=== PATIENT | female | born 1995 | race Caucasian/White ===

== ENCOUNTER → 2021-05-05 09:21 | Outpatient (BNVA) | payer MEDICAID, SELFPAY | PROVIDERS: PCP Pediatrics Adolescent Medicine; Visit Provider Nurse Practitioner Women's Health | DX: N92.6 Irregular menstruation, unspecified (principal) | CPT/HCPCS: 81025 ==

== ENCOUNTER → 2021-05-19 10:24 | Outpatient (BNVA) | payer MEDICAID, SELFPAY | PROVIDERS: PCP Pediatrics Adolescent Medicine; Visit Provider Nurse Practitioner Women's Health | DX: Z34.80 Encounter for supervision of other normal pregnancy, unspecified trimester (principal) | CPT/HCPCS: 81000; 87086 ==

== ENCOUNTER → 2021-06-07 12:03 | Outpatient (BNVA) | payer MEDICAID, SELFPAY | PROVIDERS: PCP Pediatrics Adolescent Medicine; Visit Provider Obstetrics & Gynecology | DX: Z34.80 Encounter for supervision of other normal pregnancy, unspecified trimester (principal) | CPT/HCPCS: 80307; 81000; 85027; 86592; 86762; 86803; 86850; 86900; 87086; 87340 ==

== ENCOUNTER → 2021-06-21 12:56 | Outpatient (BNVA) | payer MEDICAID, SELFPAY | PROVIDERS: PCP Pediatrics Adolescent Medicine; Visit Provider Obstetrics & Gynecology | DX: Z34.80 Encounter for supervision of other normal pregnancy, unspecified trimester (principal) | CPT/HCPCS: 84315; 87491; 87591; 88175 ==

== ENCOUNTER → 2021-10-10 14:35 | Outpatient (BNVA) | payer MEDICAID, SELFPAY | PROVIDERS: PCP Nurse Practitioner Family; Visit Provider Obstetrics & Gynecology | DX: Z34.80 Encounter for supervision of other normal pregnancy, unspecified trimester (principal) | CPT/HCPCS: 82950; 84315; 85027; 87086 ==

== ENCOUNTER 2021-12-05 14:13 | Outpatient (CLI) | payer MEDICAID, SELFPAY ==
[2021-12-05] VITALS (38 sets, daily range): BP systolic 118–139; BP diastolic 63–92; PULSE 94–136; RESP 17; TEMP 36.2–36.4; O2SAT 96–100; BMI 25.1
[2021-12-05 15:13] LABS: Bilirubin Urine Neg (Negative); Blood Urine 2+ (Negative); Glucose Urine UA Norm (Normal); Ketones Urine 3+ (Negative); Leukocyte Esterase Urine 1+ (Negative); Nitrate Urine Negative (Negative); Protein Urine Neg (Negative); Specific Gravity, Urine 1.015 (1.005-1.030); Urine Appearance SL Hazy (CLEAR); Urine Color Yellow (Yellow); Urobilinogen Urine Norm (Negative); pH Urine 6 (5-7)
[2021-12-05 15:15] LABS: Add Urine Culture? Yes; Bacteria Urine 2+ /hpf; WBC Urine 15-25 /hpf (0-5)
--- NOTE | 2021-12-05 15:16 | USR_ITS ---
PROCEDURE INFORMATION: Exam: US Biophysical Profile Without Non-Stress Test Exam date and time: 12/05/2021 4:53 PM Age: 26 years old Clinical indication: Pain indication: Patient is having right flank pain; ; Additional info: well being, logan TECHNIQUE: Imaging protocol: US biophysical profile without non-stress testing. COMPARISON: US OB >= 14 weeks fetus [facility] 08/16/2021 8:52 AM FINDINGS: heart rate: Appropriate cardiac activity is documented. Heart rate is 141 bpm. Presentation: Fetus is in cephalic presentation. Placenta: Anterior placenta. No placenta previa. No retroplacental fluid collection. Amniotic fluid index: Amniotic fluid index is 13.1 cm. BIOPHYSICAL PROFILE: breathing movement (BPP): 2 out of 2. body movement (BPP): 2 out of 2. tone (BPP): 2 out of 2. Amniotic fluid (BPP): 2 out of 2. MATERNAL ANATOMY: Cervix: Cervix measures 3.7 cm in length, and appears closed. US/US OB BPP NST [id number] IMPRESSION: 1. Biophysical profile score is 8/8. 2. Amniotic fluid index is 13.1 cm.
--- NOTE | 2021-12-05 15:27 | USR_ITS ---
PROCEDURE INFORMATION: Exam: US Retroperitoneal; Complete; Kidneys and Bladder Exam date and time: 12/05/2021 4:35 PM Age: 26 years old Clinical indication: Abdominal pain; Flank; Right upper quadrant (ruq); ; Additional info: Possible kidney stone TECHNIQUE: Imaging protocol: Real-time ultrasound of the retroperitoneum with image documentation. Complete exam focused on the kidneys and bladder. COMPARISON: US OB follow up [facility] 09/14/2021 10:10 AM FINDINGS: Right kidney: Right kidney measures 11.1 cm in length. Moderate right hydronephrosis noted. No right renal calculus noted. The right ureter is not demonstrated sonographically. No renal cyst or mass. Left kidney: Left kidney measures 10.6 cm in length. Mild left hydronephrosis noted. No left renal calculus noted. The left ureter is not demonstrated sonographically. No renal cyst or mass. Urinary bladder: Urinary bladder is unremarkable as demonstrated. US/US renal BI* [id number] IMPRESSION: 1. Bilateral hydronephrosis, right worse than left. The bilateral ureters are not demonstrated sonographically. 2. The visualized bilateral hydronephrosis may secondary to extrinsic compression of the distal ureters by the gravid uterus. Alternatively, ureteral calculi cannot be excluded on the basis of this study.
[2021-12-05] MEDS: acetaminophen 500 mg Tablet 1000 MG PO (15:33)
[2021-12-05 18:14] LABS: Basophils # 0.1 10^3/uL (0.0-0.1); Basophils % 0.5 %; Eosinophils # 0.1 10^3/uL (0.0-0.8); Hematocrit 30.6 % (37.0-47.0); Hemoglobin 10.3 g/dL (11.5-15.3); Lymphocytes # 1.5 10^3/uL (0.8-4.8); Lymphocytes % 12.7 %; Mean Corpuscular HGB Conc 33.7 g/dL (30.0-36.0); Mean Corpuscular Hemoglobin 29.7 pg (28.0-34.0); Mean Corpuscular Volume 88.2 fl (81-99); Mean Platelet Volume 9.1 fL (7.4-10.4); Monocytes # 1.7 10^3/uL (0.2-0.9); Monocytes % 14.3 %; Neutrophils # 8.46 10^3/uL (1.8-7.7); Neutrophils % 69.6 %; Nucleated Red Blood Cells % 0 %; Platelet Count 199 10^3/cmm (130-400); Red Blood Count 3.47 10^6/uL (4.1-5.3); Red Cell Distribution Width 13.5 % (12.1-15.1); White Blood Count 12.2 10^3/uL (4.0-10.0)
[2021-12-05] MEDS: lactated ringers 1,000 ML 999 ML IV (18:16)
[2021-12-05 18:39] LABS: Alanine Aminotransferase 9 U/L (0-33); Albumin Level 3.3 g/dL (3.5-5.2); Alkaline Phosphatase 147 IU/L (35-105); Anion Gap 13.2 (5-19); Aspartate Amino Transferase 17 U/L (0-32); Blood Urea Nitrogen 5 mg/dL (6-20); Calcium 8.8 mg/dL (8.5-10.5); Carbon Dioxide 21 mmol/L (22-29); Chloride 101 mmol/L (98-107); Glomerular Filtration Rate 194.5 mL/min (90-130); Glucose 77 mg/dL (65-115); Osmolality Calculated 270 mOsm/kg (285-295); Potassium 3.2 mmol/L (3.5-5.1); Sodium 132 mmol/L (136-145); Total Bilirubin 0.3 mg/dL (0.15-1.2); Total Protein 6.3 g/dL (6.6-8.7)
[2021-12-05] MEDS: HYDROcodone-acetaminophen 5-325 mg Tablet 1 TAB PO (18:44)
== END 2021-12-05 20:10 | disposition home or self-care (01) ==
LOC: OPOB 14:14 → OBGYN 14:15
PROVIDERS: Obstetrics & Gynecology; PCP Nurse Practitioner Family; Visit Provider Obstetrics & Gynecology
DX: O26.899 Other specified pregnancy related conditions, unspecified trimester (principal); Z3A.00 Weeks of gestation of pregnancy not specified; R09.89 Other specified symptoms and signs involving the circulatory and respiratory systems; R10.9 Unspecified abdominal pain
CPT/HCPCS: 36415; 59025; 76770; 76819; 80053; 81001; 85025; 87086; 99211

== ENCOUNTER → 2021-12-06 08:55 | Outpatient (BNVA) | payer MEDICAID, SELFPAY | PROVIDERS: PCP Nurse Practitioner Family; Visit Provider Obstetrics & Gynecology | DX: Z34.90 Encounter for supervision of normal pregnancy, unspecified, unspecified trimester (principal) | CPT/HCPCS: 84315; 87081 ==

== ENCOUNTER 2021-12-27 18:02 | Inpatient (IN) | payer MEDICAID, SELFPAY ==
[2021-12-27] VITALS (35 sets, daily range): BP systolic 124–149; BP diastolic 68–105; PULSE 71–117; RESP 16; O2SAT 82–100; BMI 25.1
[2021-12-27 19:04] LABS: Basophils # 0.1 10^3/uL (0.0-0.1); Basophils % 0.5 %; Eosinophils # 0.1 10^3/uL (0.0-0.8); Eosinophils % 0.9 %; Hematocrit 33.4 % (37.0-47.0); Hemoglobin 10.7 g/dL (11.5-15.3); Lymphocytes # 1.6 10^3/uL (0.8-4.8); Lymphocytes % 12.1 %; Mean Corpuscular Hemoglobin 29.3 pg (28.0-34.0); Mean Corpuscular Volume 91.5 fl (81-99); Mean Platelet Volume 9.6 fL (7.4-10.4); Monocytes % 7.8 %; Neutrophils # 10.16 10^3/uL (1.8-7.7); Neutrophils % 77.5 %; Nucleated Red Blood Cells % 0 %; Platelet Count 198 10^3/cmm (130-400); Red Blood Count 3.65 10^6/uL (4.1-5.3); Red Cell Distribution Width 15.5 % (12.1-15.1); White Blood Count 13.1 10^3/uL (4.0-10.0)
[2021-12-27] MEDS: ampicillin 2,000 MG in sodium chloride 0.9% (plus) 50 ML 100 MG IV (19:31)
[2021-12-27] MEDS: dextrose 5%-lactated ringers 1,000 ML 125 ML IV (19:31)
--- NOTE | 2021-12-27 22:50 | ANES.PREANE2 ---
Pre-Anesthetic Assessment Height/Weight: Height 1.55 m Weight 60.328 kg Pulse Resp BP Pulse Ox 113 H 16 133/69 100 12/27/21 23:25 12/27/21 18:24 12/27/21 23:23 12/27/21 23:25 Preop Diagnosis: IUP labor epidural Familial anesthetic complications: none Was Beta Rell taken within 24 hours: N/A Was Clonidine taken within 24 hours: N/A Last Intake: 10:00 Social No alcohol and No tobacco Exam alert, oriented x 3 and clear to auscultation bilaterally Airway Submandibular: within normal limits Cervical ROM: within normal limits Mallampati: Class II Dentition: full History/ROS No significant complaints Anesthetic Plan ASA status: 2 Anesthesia: Anesthesia Evaluation and Regional (specify below) (labor epidural) Risk of > 500 ml blood loss (7ml/kg in children): Yes, adequate IV access and fluids planned Medications/Allergies Home Medications Medication Instructions Recorded Confirmed Last Taken Type vitamins no.119-iron tab PO 05/05/21 12/26/21 12/04/21 22:00 History fumarate 29 mg-folic acid 1 mg tablet breast pump (Pump In Style #1 ea 10/24/21 12/26/21 Unknown Rx Advanced) ferrous sulfate 325 mg (65 mg 325 mg PO DAILY tab 11/07/21 12/26/21 12/04/21 22:00 History iron) tablet bupropion HCl 100 mg tablet,12 hr 100 mg PO DAILY tab 11/18/21 12/26/21 12/04/21 22:00 History sustained-release (Wellbutrin SR) Allergies Allergy/AdvReac Type Severity Reaction Status Date / Time No Known Allergies Allergy Verified 12/26/21 15:24 Current Medications Generic Name Dose Route Start Last Admin Trade Name Freq PRN Reason Stop Dose Admin Dextrose/Lactated Ringer's 1,000 mls @ 125 mls/hr 12/27/21 18:30 12/27/21 19:31 Dextrose 5%-Lactated Ringers IV 125 mls/hr .Q8H HARRY Administration PFS Anesthesia Medical History Anxiety and depression (~2019) Has had symptoms on and off since teenage years however started on medication in 2018-took Paxil without any improvement and discontinued medication in 2019 and has not been on any medication since then. She did see a therapist and a psychiatrist in 2019 but not now. Symptoms are controlled with relaxation techniques No pertinent past medical history Denies diabetes, asthma, hypertension, seizures, DVT/PE PCP: NOVA Maldonado at [facility] Surgical History No pertinent past surgical history Family History Grandmother Diabetes maternal Hypertension maternal Stroke maternal Mother Hypertension Grandfather Stroke paternal Denies family history of Colon cancer Ovarian cancer Heart disease Hyperlipidemia Breast cancer Uterine cancer Thyroid disease Female Reproductive History : 2 Data Anesthesia : 12/27/21 18:30 Short CBC 12/27/21 Range/Units 18:30 WBC 13.1 H (4.0-10.0) 10^3/uL Hgb 10.7 L (11.5-15.3) g/dL Hct 33.4 L (37.0-47.0) % MCV 91.5 (81-99) fl Plt Count 198 (130-400) 10^3/cmm Neut % (Auto) 77.5 % Neut # (Auto) 10.16 H (1.8-7.7) 10^3/uL Cardiac Studies: No Data to Display
--- NOTE | 2021-12-27 23:33 | ANES.PROC ---
Anesthesia Procedures Procedure/Date: 12/27/21 epidural Epidural: Time Out Performed: Yes Consents Signed: Procedure Consent Consent: from patient, risks and benefits reviewed and patient agrees to proceed Lumbar Level: L2-L3 Epidural position: sitting Epidural procedure: sterile prep of area, 1% lidocaine to numb the area, 18 g needle, negative for paresthesia passed, test dose given, 1.5% xylocaine 1:200k epi, placed PCEA, no systemic response, sterile dressing applied, L.U.D. no apparent complications and 0.2% Ropiavacaine @ mls/hr (11) Additional Comments: first attempt blood return in catheter second attempt no blood, no CSF. successful. LITA at 5, taped at 11 at skin.
[2021-12-27] MEDS: ampicillin 1,000 MG in sodium chloride 0.9% (plus) 50 ML 100 MG IV (23:55)
[2021-12-28] VITALS (105 sets, daily range): BP systolic 90–154; BP diastolic 51–90; PULSE 69–136; RESP 14–19; TEMP 35.4–37.1; O2SAT 94–100
[2021-12-28] MEDS: oxytocin 30 UNIT/500 ML BAG IV (00:07)
[2021-12-28] MEDS: alum-mag-hydroxide-sime 30 mL UDC PO (00:25)
[2021-12-28] MEDS: ampicillin 1,000 MG in sodium chloride 0.9% (plus) 50 ML 100 MG IV ×2 (03:49→07:31)
[2021-12-28] MEDS: ondansetron 2 mg/ML SDV 2 mL 4 MG IVP (05:36)
--- NOTE | 2021-12-28 08:24 | PM.MISC ---
Miscellaneous Note Purpose of Documentation: progress note Note: Patient complaining of R hip pain since 4 am, bolused with bupivicaine 0.5% 5 cc with improved pain profile.
--- NOTE | 2021-12-28 09:23 | PM.OPHPUD ---
Labor & Delivery H&P Update Date of Procedure: December 28, 2021 Date H&P Performed: 12/26/21 H&P update information: I have reviewed H&P completed within last 30 days, I have examined patient prior to procedure and No changes to prior documentation Changes to previous documentation: The patient is here for elective induction at term. Admission Diagnosis: Preop diagnosis: IUP
[2021-12-28] MEDS: miSOPROStol 200 mcg Tablet 800 MCG PR (11:28)
--- NOTE | 2021-12-28 11:35 | PM.DELIVERY ---
Delivery Note: Date of delivery: December 28, 2021 Pre-delivery diagnoses: iup@39 weeks, 5 days Post-delivery diagnoses: same-delivered Procedure: Delivering Physician: Ambar Estimated blood loss (mL): 150 Pre-Delivery Course: The patient was admitted for induction at term. She received pitocin for augmentation, as she was already having some contractions. She received three doses of ampicillin for GBS prophylaxis. She had some jorge red bleeding when she was 8 cm dilation. She had AROM. A small amount of clot and some blodd stained amniotic fluid was produced. They bleeding ceased after this. This had complete cervical dilation and began pushing. Delivery: The patient had complete cervical dilation and began to push. The head delivered in the MARYLIN position over an intact perineum under epidural anesthesia. The nose and mouth were bulb suctioned. The shoulders and body delivered atraumatically. The baby was placed onto the mother's abdomen. The cord was clamped and cut. Cord blood was obtained. The placenta delivered spontaneously and just shortly after the baby. It appeared as though there was a small abruption. The placenta was sent to pathology to evaluate. It was inspected and found to be intact. Inspection of the perineum revealed no lacerations and no repair was required. Estimated blood loss 150 mL. Apgars on baby were 9 at 1 minute and 10 at 5 minutes. Weight of baby is 8 pounds 4 ounces. Mother and baby were stable post delivery. 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
[2021-12-28] MEDS: HYDROcodone-acetaminophen 5-325 mg Tablet PO (12:47)
[2021-12-28] MEDS: benzocaine-menthol 78 gm Canister 1 SPRAY TOPICAL (13:41)
[2021-12-28] MEDS: ibuprofen 800 mg tablet PO ×2 (14:50→20:53)
[2021-12-28] MEDS: docusate sodium 100 mg Capsule PO (18:14)
[2021-12-28] MEDS: lanolin oint 7 gm 1 APPLIC TOPICAL (21:46)
[2021-12-28 23:14] LABS: Hemoglobin 7.8 g/dL (11.5-15.3); Mean Corpuscular HGB Conc 32.5 g/dL (30.0-36.0); Mean Corpuscular Hemoglobin 29.5 pg (28.0-34.0); Mean Corpuscular Volume 90.9 fl (81-99); Mean Platelet Volume 9.2 fL (7.4-10.4); Platelet Count 171 10^3/cmm (130-400); Red Blood Count 2.64 10^6/uL (4.1-5.3); Red Cell Distribution Width 13.8 % (12.1-15.1); White Blood Count 19.5 10^3/uL (4.0-10.0)
[2021-12-29 01:00] VITALS: BP 110/66; PULSE 78; O2SAT 98
[2021-12-29 05:00] VITALS: BP 129/83; PULSE 76; RESP 16; O2SAT 99
--- NOTE | 2021-12-29 08:10 | PM.PN ---
Subjective Subjective: The patient is doing well this morning. No concerns. Baby has to stay for 48 hours due to GBS+ Vitals/I&O/Wt Last Vital Signs Temp 98.1 F 12/28/21 17:15 Pulse 76 12/29/21 05:00 Resp 16 12/29/21 05:00 BP 129/83 12/29/21 05:00 Pulse Ox 99 12/29/21 05:00 12/28/21 12/29/21 12/29/21 22:59 06:59 14:59 Intake Total 348.5 / 1777.333 Output Total 400 / 900 Balance -51.5 / 877.333 Weight last 48 hrs Weight 133 lb Physical Exam Narrative: No concerns this AM. well. Lochia is normal. Tolerating a regular diet, ambulating without difficulty Const: COMMON NORMALS: no acute distress, average body habitus, patient oriented x3, no limitations, healthy appearing, alert and well nourished GENERAL APPEARANCE: cooperative, comfortable, well kempt and well developed ORIENTATION/CONSCIOUSNESS: Yes awake, Yes oriented to person, Yes oriented to place and Yes oriented to time Resp: COMMON NORMALS: normal respiratory effort EFFORT & INSPECTION: Yes able to speak in complete sentences GI: COMMON NORMALS: Soft to palpation and non-tender PALPATION: Yes Soft to palpation Extremity: COMMON NORMALS: no calf tenderness Neuro: COMMON NORMALS: patient oriented x3 SENSORIUM/ORIENTATION: Yes alert, Yes oriented to person, Yes oriented to place and Yes oriented to time Psych: APPEARANCE: Yes well kempt Urinary Catheter Management: Madsen: Cath Placed During This Visit: yes, but has since been removed by the nurse Reason for Continuing Indwelling Catheter: Decision to DC Catheter Urinary Catheter Date of Insertion: 12/28/21 Urinary Catheter Time of Insertion: 00:10 Date Urinary Catheter Removed: 12/28/21 Time Urinary Catheter Discontinued: 10:45 Data : 12/28/21 23:03 Attestations Medical Necessity Statement*: The patient had a vaginal delivery. 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
[2021-12-29] MEDS: ibuprofen 800 mg tablet PO ×3 (09:06→21:45)
[2021-12-29] MEDS: docusate sodium 100 mg Capsule PO (09:06)
[2021-12-29] MEDS: prenatal vitamin Capsule 1 CAP PO (09:06)
[2021-12-29 09:10] VITALS: BP 108/70; PULSE 85; RESP 15; TEMP 36.4
[2021-12-29 15:22] VITALS: BP 110/73; PULSE 95; RESP 16; TEMP 36.6; O2SAT 100
[2021-12-29] MEDS: HYDROcodone-acetaminophen 5-325 mg Tablet PO (21:45)
[2021-12-29 21:50] VITALS: BP 126/71; PULSE 73; RESP 16; TEMP 36.8; O2SAT 99
[2021-12-30 05:00] VITALS: BP 108/66; PULSE 59; RESP 17; TEMP 36.7; O2SAT 96
--- NOTE | 2021-12-30 07:43 | PM.DCS ---
Discharge Providers Date of Admission: 12/27/21 18:02 Date of Discharge: December 30, 2021 Attending Provider at Admission: Felicita Villalta MD Attending Provider at Discharge: Felicita Villalta MD Primary Care Provider: Jaclyn Marcum Reason for Visit Reason for Visit: IOL Hospital Course Hospital Course The patient was admitted for induction of labor at term. She received pitocin augmentation as she was already having irregular contractions. She was GBS positive and received three doses of ampicillin prior to delivery. She had spontaneous delivery of a term male . She did well and was ready for discharge on day #2. Physical Exam Narrative: doing well this morning. No concerns. Const: COMMON NORMALS: no acute distress, average body habitus, patient oriented x3, no limitations, healthy appearing, alert and well nourished GENERAL APPEARANCE: cooperative, comfortable, well kempt and well developed ORIENTATION/CONSCIOUSNESS: Yes awake, Yes oriented to person, Yes oriented to place and Yes oriented to time Resp: COMMON NORMALS: normal respiratory effort EFFORT & INSPECTION: Yes able to speak in complete sentences GI: COMMON NORMALS: Soft to palpation and non-tender PALPATION: Yes Soft to palpation Extremity: COMMON NORMALS: no calf tenderness Neuro: COMMON NORMALS: patient oriented x3 SENSORIUM/ORIENTATION: Yes alert, Yes oriented to person, Yes oriented to place and Yes oriented to time Psych: COMMON NORMALS: mental status grossly normal, Normal thought process present, cooperative, normal affect and speech normal APPEARANCE: Yes grossly normal and Yes well kempt ATTITUDE: Yes calm and Yes engaged ACTIVITY/MOTOR BEHAVIOR: Yes appropriate eye contact SPEECH: Yes normal speech THOUGHT PROCESS: Normal thought process present Urinary Catheter Management: Madsen: Cath Placed During This Visit: yes, but has since been removed by the nurse Reason for Continuing Indwelling Catheter: Decision to DC Catheter Urinary Catheter Date of Insertion: 12/28/21 Urinary Catheter Time of Insertion: 00:10 Date Urinary Catheter Removed: 12/28/21 Time Urinary Catheter Discontinued: 10:45 Discharge Data Studies Completed and Pending Pending at discharge Category Date Time Status Pathology: Surgical [PTH] Routine Pth 12/28/21 12:20 Received Laboratory Results WBC 19.5 10^3/uL (4.0-10.0) H 12/28/21 23:03 RBC 2.64 10^6/uL (4.1-5.3) L 12/28/21 23:03 Hgb 7.8 g/dL (11.5-15.3) L 12/28/21 23:03 Hct 24.0 % (37.0-47.0) L 12/28/21 23:03 MCV 90.9 fl (81-99) 12/28/21 23:03 MCH 29.5 pg (28.0-34.0) 12/28/21 23:03 MCHC 32.5 g/dL (30.0-36.0) 12/28/21 23:03 RDW 13.8 % (12.1-15.1) 12/28/21 23:03 Plt Count 171 10^3/cmm (130-400) 12/28/21 23:03 MPV 9.2 fL (7.4-10.4) 12/28/21 23:03 Neut % (Auto) 77.5 % 12/27/21 18:30 Lymph % (Auto) 12.1 % 12/27/21 18:30 [place] % (Auto) 7.8 % 12/27/21 18:30 Eos % (Auto) 0.9 % 12/27/21 18:30 Baso % (Auto) 0.5 % 12/27/21 18:30 Neut # (Auto) 10.16 10^3/uL (1.8-7.7) H 12/27/21 18:30 Lymph # (Auto) 1.6 10^3/uL (0.8-4.8) 12/27/21 18:30 [place] # (Auto) 1.0 10^3/uL (0.2-0.9) H 12/27/21 18:30 Eos # (Auto) 0.1 10^3/uL (0.0-0.8) 12/27/21 18:30 Baso # (Auto) 0.1 10^3/uL (0.0-0.1) 12/27/21 18:30 Nucleated RBC % (auto) 0 % 12/27/21 18:30 Nucleated RBCs # 0.0 /100WBC 12/27/21 18:30 Vitals Last Vital Signs Temp 98.1 F 12/30/21 05:00 Pulse 59 L 12/30/21 05:00 Resp 17 12/30/21 05:00 BP 108/66 12/30/21 05:00 Pulse Ox 96 12/30/21 05:00 Discharge Plan Discharge Patient Disposition: Home Condition: Stable Prescriptions: Continued PNV 119-iron fum-folic acid 29 mg iron- 1 mg tablet PO 0RF (DME) breast pump [Pump In Style Advanced] Device See Rx Instructions .ROUTE .MEDSUPPLY Qty: 1 0RF Rx Instructions: As directed ferrous sulfate 325 mg (65 mg iron) tablet 325 mg PO DAILY 0RF bupropion HCl [Wellbutrin SR] 100 mg tablet sustained-release 12 hr 100 mg PO DAILY 0RF Discharge Orders: Discharge Order (Routine); Ordered 12/30/21 Ordered By: Felicita Villalta Referrals: Zahida Hernandez MD [Physician] - 02/08/22 8:30 am (Your 6 week post- appointment is scheduled for 02/08/22 @8:30. ) Patient Instructions: Opioid Safety Discharge Attestations Time Spent in Discharge Care*: less than 30 min Quality Metrics Clinical Quality Measures [ No reported AMI, CVA or VTE this stay] Coding Level of Care Code Acute Chg FW DC note
[2021-12-30] MEDS: prenatal vitamin Capsule 1 CAP PO (08:11)
[2021-12-30] MEDS: ibuprofen 800 mg tablet PO (08:11)
[2021-12-30] MEDS: docusate sodium 100 mg Capsule PO (08:12)
[2021-12-30 08:20] VITALS: BP 108/75; PULSE 72; RESP 18; TEMP 36.6; O2SAT 98
[2021-12-30 09:35] VITALS: BP 108/75; PULSE 72; RESP 18; TEMP 36.6; O2SAT 98
--- NOTE | 2021-12-30 10:32 | ANE.PACU2 ---
Inpatient post-anesthesia follow up: Airway intact: Yes Vital signs: Temperature 97.9 F Pulse Rate 72 Respiratory Rate 18 Blood Pressure 108/75 Pulse Oximetry 98 Oxygen Delivery Me thod Room Air Oxygen Flow Rate Fraction of Inspir ed Oxygen Hydration adequate: Yes Nausea and vomiting: No Pain level: 2 Mental status: Baseline
== END 2021-12-30 09:35 | disposition home or self-care (01) | DRG 807 ==
LOC: OBGYN 18:15
PROVIDERS: Admitting Provider Obstetrics & Gynecology; PCP Nurse Practitioner Family; Visit Provider Obstetrics & Gynecology
DX: O99.824 Streptococcus B carrier state complicating childbirth (principal); Z37.0 Single live birth; O99.344 Other mental disorders complicating childbirth; O99.02 Anemia complicating childbirth; O45.93 Premature separation of placenta, unspecified, third trimester; Z3A.39 39 weeks gestation of pregnancy; F41.8 Other specified anxiety disorders; D64.9 Anemia, unspecified; M25.551 Pain in right hip; O75.89 Other specified complications of labor and delivery
CPT/HCPCS: 36415; 51702; 59409; 85025; 85027; 88307; J0290; J2405; J2795

== ENCOUNTER → 2022-02-08 09:07 | Outpatient (BNVA) | payer MEDICAID, SELFPAY | PROVIDERS: PCP Nurse Practitioner Family; Visit Provider Obstetrics & Gynecology | DX: Z01.419 Encounter for gynecological examination (general) (routine) without abnormal findings (principal); D64.9 Anemia, unspecified | CPT/HCPCS: 84702; 85025; 88175 ==

== ENCOUNTER → 2022-02-14 16:00 | Outpatient (BNVA) | payer MEDICAID, SELFPAY | PROVIDERS: PCP Nurse Practitioner Family; Visit Provider Obstetrics & Gynecology | DX: Z30.9 Encounter for contraceptive management, unspecified (principal) | CPT/HCPCS: 81025 ==

== ENCOUNTER → 2022-12-22 16:00 | Outpatient (BNVA) | payer MEDICAID, SELFPAY | PROVIDERS: PCP Nurse Practitioner Family; Visit Provider Nurse Practitioner Women's Health | DX: Z11.3 Encounter for screening for infections with a predominantly sexual mode of transmission (principal) | CPT/HCPCS: 86592; 86803; 87340; 87491; 87591; 87661; 87806 ==

== ENCOUNTER → 2024-03-11 08:30 | Outpatient (BNVA) | payer MEDICAID, SELFPAY | PROVIDERS: PCP Nurse Practitioner Family; Visit Provider Nurse Practitioner Women's Health | DX: Z01.419 Encounter for gynecological examination (general) (routine) without abnormal findings (principal); Z11.3 Encounter for screening for infections with a predominantly sexual mode of transmission | CPT/HCPCS: 86592; 86695; 86696; 86803; 87340; 87491; 87591; 87806; 88175 ==

== ENCOUNTER 2024-11-11 14:17 | Outpatient (CLI) | payer SELFPAY ==
--- NOTE | 2024-11-11 14:26 | XRR_ITS ---
PROCEDURE INFORMATION: Exam: XR Right Hip Exam date and time: 11/11/2024 2:30 PM Age: 29 years old Clinical indication: Hip pain; Right hip weakness and pain with popping and numbness that radiates to toes x 2 mo; Additional info: Hip pain right TECHNIQUE: Imaging protocol: Radiologic exam of the right hip. Views: 1 view hip with pelvis when performed. COMPARISON: US OB limited [facility] 12/06/2021 8:12 AM FINDINGS: Bones/joints: Unremarkable. No acute fracture. Soft tissues: Unremarkable. XR/XR hip RT 2-3V wo/w pel* [id number] IMPRESSION: No acute findings.
== END 2024-11-11 14:18 | disposition home or self-care (01) ==
PROVIDERS: PCP Nurse Practitioner Family; Visit Provider Nurse Practitioner Family
DX: M25.551 Pain in right hip (principal)
CPT/HCPCS: 73502

== ENCOUNTER → 2024-11-20 08:30 | Outpatient (BNVA) | payer SELFPAY | PROVIDERS: PCP Nurse Practitioner Family; Visit Provider Orthopaedic Surgery | DX: M25.551 Pain in right hip (principal) | CPT/HCPCS: 73502 ==

== ENCOUNTER → 2025-05-14 16:12 | Outpatient (BNVA) | payer OTHER, MEDICAID, SELFPAY | PROVIDERS: PCP Nurse Practitioner Family; Visit Provider Nurse Practitioner Women's Health | DX: N91.2 Amenorrhea, unspecified (principal); R30.0 Dysuria | CPT/HCPCS: 81025; 84315; 87086 ==

== ENCOUNTER 2025-07-09 14:17 | Outpatient (CLI) | payer MEDICAID, SELFPAY ==
--- NOTE | 2025-07-09 14:15 | USR_ITS ---
PROCEDURE INFORMATION: Exam: US Pelvis, Complete, Non-Obstetric Exam date and time: 07/09/2025 3:00 PM Age: 29 years old Clinical indication: Pelvic pain; Additional info: R10.2 - pelvic and perineal pain TECHNIQUE: Imaging protocol: Transabdominal pelvic nonobstetric ultrasound. Complete exam. Real time ultrasound with image documentation. COMPARISON: US OB limited [facility] 12/06/2021 8:12 AM FINDINGS: Uterus: Anteverted uterus measured at 7.6 x 3.5 x 4.5 cm. Endometrial echo complex measured at about 3 mm total AP double-layer thickness, nonspecific. LMP indicated as 07/08/2025. Evidence of IUD demonstrated within the uterus. Approximately 9-10 mm amorphous hyperechoic, echogenic structure projects region of central uterine cavity, endometrium region mid to lower uterus, lower uterine segment level, possibly related to IUD, though calcification, other lesions, processes not excluded. Right ovary/adnexa: Right ovary measured at 3.6 x 2.3 x 2.7 cm, right ovarian volume 12.02 mL, appears to contain follicles. Evidence of venous and arterial waveforms demonstrated of right ovary using Doppler. Left ovary/adnexa: Left ovary measured at 3.0 x 2.2 x 2.1 cm, left ovarian volume 6.97 mL, appears to contain follicles. Evidence of arterial and venous waveforms demonstrated of left over using Doppler. Vagina: Transabdominal/pelvic, endovaginal scanning obtained. Intraperitoneal space: No free pelvic fluid demonstrated. Urinary bladder: Normal. US/US pelv w/transvag [id number] IMPRESSION: Evidence of IUD demonstrated within the uterus. Approximately 9-10 mm amorphous hyperechoic, echogenic structure projects region of central uterine cavity, endometrium region mid to lower uterus, lower uterine segment level, possibly related to IUD, though calcification, other lesions, processes not excluded.
== END 2025-07-09 14:18 | disposition home or self-care (01) ==
PROVIDERS: PCP Nurse Practitioner Family; Visit Provider Nurse Practitioner Women's Health
DX: R10.20 Pelvic and perineal pain unspecified side (principal); Z97.5 Presence of (intrauterine) contraceptive device; R93.89 Abnormal findings on diagnostic imaging of other specified body structures
CPT/HCPCS: 76830; 76856

== ENCOUNTER → 2025-07-21 13:14 | Outpatient (BNVA) | payer MEDICAID, SELFPAY | PROVIDERS: PCP Nurse Practitioner Family; Visit Provider Nurse Practitioner Women's Health | DX: T83.84XA Pain due to genitourinary prosthetic devices, implants and grafts, initial encounter (principal); X58.XXXA Exposure to other specified factors, initial encounter; Z12.4 Encounter for screening for malignant neoplasm of cervix | CPT/HCPCS: 81025; 87624 ==